=== PATIENT | female | born 1960 | race Caucasian/White ===

== ENCOUNTER → 2018-08-11 | Outpatient (CLI) | payer OTHER ==
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
== END | disposition home or self-care (01) ==
LOC: US 10:38
PROVIDERS: ATTEND Internal Medicine
DX: M25.461 Effusion, right knee (principal); Z85.3 Personal history of malignant neoplasm of breast
CPT/HCPCS: 93971

== ENCOUNTER → 2018-08-18 | Outpatient (CLI) | payer OTHER ==
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
== END | disposition home or self-care (01) ==
LOC: RAD 12:42
PROVIDERS: ATTEND Internal Medicine
DX: M25.561 Pain in right knee (principal); V89.2XXD Person injured in unspecified motor-vehicle accident, traffic, subsequent encounter
CPT/HCPCS: 73562

== ENCOUNTER 2020-04-13 09:58 | Inpatient (IN) | payer OTHER ==
[~2020-04-13] VITALS: Ht 160 cm; Wt 90.4 kg
--- NOTE | 2020-04-13 10:57 | RAD ---
CT HEAD WO CONTRAST History: CVA Comparison: None. Technique: Noncontrast CT imaging was performed of the head. Exposure: One or more of the following individualized dose reduction techniques were utilized for this examination: 1. Automated exposure control 2. Adjustment of the mA and/or kV according to patient size 3. Use of iterative reconstruction technique. Findings: No intracranial hemorrhage. No mass effect. No hydrocephalus. Mild foci of decreased attenuation within the hemispheric white matter, most often due to chronic microvascular ischemia. Imaged orbits are unremarkable. Imaged paranasal sinuses and mastoid air cells are clear. No acute calvarial fracture. Impression: 1. No acute intracranial abnormality. If persistent concern for acute ischemia, MRI can better evaluate. Electronically signed by: Joseph Alvarado DO (04/13/2020 10:54 AM) [id number]
[2020-04-13 11:33] LABS: BASO # 0.1 x10^3/uL (0.0-0.2); BASO % 1 % (0-3); EOS # 0.1 x10^3/uL (0.0-0.7); EOS % 1 % (0-3); HEMATOCRIT 41.1 % (36.0-47.0); HEMOGLOBIN 14.3 g/dL (12.0-15.5); LYMPH # 1.8 x10^3/uL (1.0-4.8); LYMPH % 21 % (24-48); MEAN CORPUSCULAR HEMOGLOBIN 31 pg (25-35); MEAN CORPUSCULAR HGB CONC 35 g/dL (31-37); MEAN CORPUSCULAR VOLUME 88 fL (79-100); MONO # 0.7 x10^3/uL (0.0-1.1); MONO % 9 % (0-9); NEUT # 5.6 x10^3/uL (1.8-7.7); NEUT % 68 % (31-73); PLATELET COUNT 231 x10^3/uL (140-400); RED BLOOD COUNT 4.69 x10^6/uL (3.50-5.40); WHITE BLOOD COUNT 8.2 x10^3/uL (4.0-11.0)
[2020-04-13 11:42] LABS: CALCIUM 9.5 mg/dL (8.5-10.1); CREATININE 0.9 mg/dL (0.6-1.0); GFR 63.9
[2020-04-13 11:48] LABS: ALBUMIN 3.8 g/dL (3.4-5.0); TOTAL BILIRUBIN 0.9 mg/dL (0.2-1.0); TOTAL PROTEIN 7.8 g/dL (6.4-8.2)
[2020-04-13 12:15] LABS: BILIRUBIN,URINE NEGATIVE (NEG); CLARITY,URINE CLEAR; COLOR,URINE YELLOW; NITRITE,URINE NEGATIVE (NEG); PH,URINE 7.5 (<5.0-8.0); PROTEIN,URINE NEGATIVE (NEG-TRACE); UROBILINOGEN,URINE 0.2 mg/dL (0.2 mg/dL)
[2020-04-13 12:22] LABS: BACTERIA,URINE FEW /HPF (0-FEW); RBC,URINE OCC /HPF (0-2); SQUAMOUS EPITHELIAL CELL,UR MOD /LPF
--- NOTE | 2020-04-13 13:08 | PHYS DOC ---
Past Medical History Past Medical History: Hypertension Past Surgical History: Appendectomy Smoking Status: Never Smoker Alcohol Use: None General Adult EDM: Chief Complaint: NEURO SYMPTOMS/DEFICITS HPI: HPI: Patient is a 59 year old female presents to the ED with a chief complaint of numbness and tingling in her left upper and left lower extremities. Patient states that the symptoms started around 4 this morning. Patient denies taking any blood thinners. Patient denies fever, chills, nausea, vomiting, chest pain, shortness of breath. Patient also denies dysarthria, dysphasia, slurred speech, visual changes. Review of Systems: Review of Systems: Constitutional: Denies fever or chills. [] Eyes: Denies change in visual acuity. [] HENT: Denies nasal congestion or sore throat. [] Respiratory: Denies cough or shortness of breath. [] Cardiovascular: Denies chest pain or edema. [] GI: Denies abdominal pain, nausea, vomiting : Denies dysuria. [] Musculoskeletal: Denies back pain or joint pain. [] Neurologic: Complains of numbness and tingling in the left upper and left lower extremities Heart Score: Risk Factors: Risk Factors: DM, Current or recent (<one month) smoker, HTN, HLP, family history of CAD, obesity. Risk Scores: Score 0 - 3: 2.5% MACE over next 6 weeks - Discharge Home Score 4 - 6: 20.3% MACE over next 6 weeks - Admit for Clinical Observation Score 7 - 10: 72.7% MACE over next 6 weeks - Early Invasive Strategies Current Medications: Current Medications Medications (Trade) Dose Ordered Sig/[facility] Start Time Stop Time Status Last Admin Dose Admin Clonidine HCl (Catapres) 0.1 mg 1X ONCE 04/13/20 13:30 04/13/20 13:31 Allergies: Allergies: Allergies Coded Allergies Type Severity Reaction Last Updated Verified Penicillins Allergy Intermediate 08/27/15 Yes Sulfa (Sulfonamide Antibiotics) Allergy Intermediate 08/27/15 Yes Physical Exam: PE: Constitutional: Well developed, well nourished, no acute distress, non-toxic appearance. [] HENT: Normocephalic, atraumatic Eyes: PERRLA, EOMI Neck: Normal range of motion, no tenderness Cardiovascular:Heart rate regular rhythm, no murmur [] Lungs & Thorax: Bilateral breath sounds clear to auscultation [] Abdomen: Bowel sounds normal, soft, no tenderness Extremities: No tenderness, ROM intact Neurologic: Alert and oriented X 3, normal motor function Current Patient Data: Labs: Laboratory Tests Test 04/13/20 11:25 04/13/20 12:07 White Blood Count 8.2 x10^3/uL (4.0-11.0) Red Blood Count 4.69 x10^6/uL (3.50-5.40) Hemoglobin 14.3 g/dL (12.0-15.5) Hematocrit 41.1 % (36.0-47.0) Mean Corpuscular Volume 88 fL (79-100) Mean Corpuscular Hemoglobin 31 pg (25-35) Mean Corpuscular Hemoglobin Concent 35 g/dL (31-37) Red Cell Distribution Width 13.0 % (11.5-14.5) Platelet Count 231 x10^3/uL (140-400) Neutrophils (%) (Auto) 68 % (31-73) Lymphocytes (%) (Auto) 21 % (24-48) L Monocytes (%) (Auto) 9 % (0-9) Eosinophils (%) (Auto) 1 % (0-3) Basophils (%) (Auto) 1 % (0-3) Neutrophils # (Auto) 5.6 x10^3/uL (1.8-7.7) Lymphocytes # (Auto) 1.8 x10^3/uL (1.0-4.8) Monocytes # (Auto) 0.7 x10^3/uL (0.0-1.1) Eosinophils # (Auto) 0.1 x10^3/uL (0.0-0.7) Basophils # (Auto) 0.1 x10^3/uL (0.0-0.2) Sodium Level 140 mmol/L (136-145) Potassium Level 4.0 mmol/L (3.5-5.1) Chloride Level 103 mmol/L (98-107) Carbon Dioxide Level 29 mmol/L (21-32) Anion Gap 8 (6-14) Blood Urea Nitrogen 11 mg/dL (7-20) Creatinine 0.9 mg/dL (0.6-1.0) Estimated GFR (Cockcroft-Gault) 63.9 BUN/Creatinine Ratio 12 (6-20) Glucose Level 139 mg/dL (70-99) H Calcium Level 9.5 mg/dL (8.5-10.1) Magnesium Level 2.0 mg/dL (1.8-2.4) Total Bilirubin 0.9 mg/dL (0.2-1.0) Aspartate Amino Transferase (AST) 28 U/L (15-37) Alanine Aminotransferase (ALT) 40 U/L (14-59) Alkaline Phosphatase 135 U/L (46-116) H Total Protein 7.8 g/dL (6.4-8.2) Albumin 3.8 g/dL (3.4-5.0) Albumin/Globulin Ratio 1.0 (1.0-1.7) Thyroid Stimulating Hormone (TSH) 1.393 uIU/mL (0.358-3.74) Urine Collection Type Void Urine Color Yellow Urine Clarity Clear Urine pH 7.5 (<5.0-8.0) Urine Specific [facility] <=1.005 (1.000-1.030) Urine Protein Negative mg/dL (NEG-TRACE) Urine Glucose (UA) Negative mg/dL (NEG) Urine Ketones (Stick) Negative mg/dL (NEG) Urine Blood Negative (NEG) Urine Nitrite Negative (NEG) Urine Bilirubin Negative (NEG) Urine Urobilinogen Dipstick 0.2 mg/dL (0.2 mg/dL) Urine Leukocyte Esterase Negative (NEG) Urine RBC Occ /HPF (0-2) Urine WBC 1-4 /HPF (0-4) Urine Squamous Epithelial Cells Mod /LPF Urine Bacteria Few /HPF (0-FEW) Laboratory Tests 04/13/20 11:25 Laboratory Tests 04/13/20 11:25 Vital Signs: Vital Signs Date Time Temp Pulse Resp B/P (MAP) Pulse Ox O2 Delivery O2 Flow Rate FiO2 04/13/20 10:33 98.8 88 18 217/93 (134) 99 Room Air 98.8 EKG: EKG: [] Radiology/Procedures: Radiology/Procedures: [] Impression: CT head does not show any acute disease. Course & Med Decision Making: Course & Med Decision Making Pertinent Labs and Imaging studies reviewed. (See chart for details) Order CT head, labs, IV. CT head does not show any acute disease. Labs are within normal limits. UA does not show UTI. Patient's blood pressure is elevated and so ordered Catapres. Patient still having symptoms which she describes as tingling and numbness. I discussed results and plan of care with patient. Patient will need to be admitted for further evaluation and treatment. SHe will need an MRI of Brain to further evaluate for CVA. I will page PCP for admission. I discussed case with neurology on-call who recommended patient be admitted as well. I have discussed case with Dr. Fernandez who is on-call for Dr. Veras. Wesleyon Disclaimer: Beata Disclaimer: This electronic medical record was generated, in whole or in part, using a voice recognition dictation system. Departure Departure Impression: Primary Impression: TIA (transient ischemic attack) Disposition: ADMITTED INPATIENT Admitting Physician: Patricia Veras Condition: GOOD Referrals: PATRICIA VERAS MD (PCP) LIZZETH ORR DO April 13, 2020 13:08
[2020-04-13] MEDS ORDERED: cloNIDine HCL 0.1 MG TABLET PO ONE (13:30)
[2020-04-13] MEDS ORDERED: ASPIRIN 325 MG TABLET PO ONE (13:30)
--- NOTE | 2020-04-13 14:35 | CONS ---
DATE OF CONSULTATION: 04/13/2020 REFERRING PHYSICIAN: Dr. Montano. REASON FOR CONSULTATION: Possible stroke. HISTORY OF PRESENT ILLNESS: The patient is a 59-year-old woman who began to have symptoms at 4:00 this morning. She noticed tingling of the left lip, arm and leg. When she touches it felt funny. She did not notice any weakness or coordination change. This was not associated with headache. She had no alteration of vision. It did not adversely affect her balance. She presented to the Emergency Room and was noted to have extremely high blood pressures. PAST MEDICAL HISTORY: 1. Hypertension. 2. Occasional edema of her feet and legs. 3. Generalized anxiety disorder. 4. Appendectomy. ALLERGIES: PENICILLIN AND SULFA. MEDICATIONS PRIOR TO ADMISSION: She is on a pill for blood pressure and a muscle relaxant she takes as needed as well as a water pill. These have not yet been documented in the medical records. FAMILY HISTORY: She is not aware of any diseases in her family. SOCIAL HISTORY: She is . She is a lifelong nonsmoker. She will drink alcohol, perhaps once every year or two. She does not use recreational drugs. REVIEW OF SYSTEMS: She has occasional headache. There has been no change of vision or hearing. She has had no trouble with chewing or swallowing. She is not short of breath, having chest or abdominal pain. Has some pain of her left ankle. She has not had fever or rash. Has not had gastrointestinal or genitourinary complaints. Does not complain of easy bruising or bleeding. She does have occasional swelling of her ankles for which she uses a water pill. She does have hypertension. She does have some anxiety. PHYSICAL EXAMINATION: VITAL SIGNS: The blood pressure was 228/100, pulse 81, respirations 16, temperature 98.8 degrees Fahrenheit. Oximetry was 97% on room air. Her weight was 90.4 kilograms, height 63 inches with a calculated body mass index of 35.3. GENERAL: She was alert, awake and cooperative. Speech was fluent and clear. She had a good fund of recent and remote knowledge. Attention and concentration was intact. She appeared well groomed and well nourished. She was fully oriented. NEUROLOGIC: Examination of the cranial nerves revealed visual lin were full to confrontation. Extraocular movements were intact. The eyes were conjugate. Pursuit movements were smooth and saccadic eye movements were without dysmetria. Pupils were 3 mm and reacted. Facial sensation was intact bilaterally. The muscles of mastication and facial expression were powerful symmetrically. Hearing was intact to finger rub. The palate arched symmetrically and the tongue was midline with full motion. Sternocleidomastoid and trapezius were powerful. Muscle bulk and tone was normal. There was no arm drift or abnormal movement. There was no leg drift. The power was full and symmetric in the upper and lower extremities. Reflexes were 2/4 and symmetric in the upper and lower extremities. The toes were downgoing bilaterally. Coordination testing with [id number], [id number], fine motor and rapid alternating movements was well performed. The sensory examination was intact to pain, light touch, proprioception, graphesthesia, cold thermal and vibration. There was no extinction to double simultaneous stimulation. She did have a subjective sensory change in the left arm more than the leg with light touch. Gait was not testable. NECK: Auscultation of the carotid arteries did not reveal a bruit. HEART: Rhythm is regular, without a murmur. EXTREMITIES: Peripheral pulses were symmetric in the hands and feet. There was no edema or cyanosis. LABORATORY RESULTS: CBC revealed a normal white blood cell count at 8.2 with normal hemoglobin at 14.3, hematocrit at 41.1, and platelet count of 231. Chemistries revealed normal electrolytes, BUN and creatinine. Glucose was elevated at 139, which was random. Calcium, and magnesium were normal. Liver enzymes were not elevated except alkaline phosphatase of 135. TSH was normal. Urinalysis revealed a specific gravity of less than 1.005. There was occasional red blood cell and 1-4 white blood cells with moderate squamous epithelial cells and a few bacteria. DIAGNOSTIC RESULTS: CT scan of the brain was performed without contrast on 04/13/2020. This did not reveal an acute intracranial process. IMPRESSION: The patient is a 59-year-old woman who developed a sense of tingling on the left side of her body including the left lips. Neurologically her exam is intact. The sensory findings are purely subjective and I find no objective findings. It is certainly possible this could represent a small stroke of the right thalamus. It could be related to hypertensive encephalopathy. It could be related to anxiety. RECOMMENDATIONS: She will need to be admitted for blood pressure management. We will also do workup for stroke with MRI brain without contrast, carotid Doppler and echocardiogram. She is on aspirin for stroke prevention. She will need a fasting lipid profile if this has not been done as an outpatient. I appreciate being involved in her care. KOURTNEY MA MD DR: OTTO/zohreh JOB#: [id number] / [id number]
[2020-04-13 15:15] VITALS: BP 173/70
--- NOTE | 2020-04-13 15:33 | RAD ---
BRAIN W/O CONTRAST History:Reason: stroke Technique: Multiplanar, multi sequential MR imaging was performed of the brain without contrast. Comparison: CT April 13, 2020 Findings: Small acute right thalamic lacunar infarct. Small acute left kirkland radiata infarct. No additional infarct. No intracranial hemorrhage. No mass effect. No hydrocephalus. Mild additional foci of FLAIR hyperintensities within the hemispheric white matter, most often due to chronic microvascular ischemia. Imaged orbits are unremarkable. Imaged paranasal sinuses and mastoid air cells are clear. Attempted to discuss the results with patient's nurse without success. Impression: 1. Acute right thalamic and left kirkland radiata infarcts. 2. Mild sequela chronic microvascular ischemia. Electronically signed by: Joseph Alvarado DO (04/13/2020 3:30 PM) [id number]
[2020-04-13 16:11] VITALS: BP 173/70
[2020-04-13] MEDS ORDERED: CETI10TA24 PO (19:15)
[2020-04-13] MEDS ORDERED: LOSA100T14 PO (19:15)
[2020-04-13] MEDS ORDERED: HYDR12.58 PO (19:16)
--- NOTE | 2020-04-13 19:20 | RAD ---
Duplex ultrasound carotid artery. HISTORY: CVA, left-sided weakness Duplex ultrasound was used to evaluate the carotid arteries. Real-time imaging, color flow imaging and Doppler were utilized for evaluation. There is minimal plaque at the right carotid bifurcation without significant stenosis on real-time or color imaging. Peak velocity in the right internal carotid artery was 64 cm/s with end-diastolic velocity of 20 cm/s and a systolic velocity index of 1.1. There is antegrade flow in the right vertebral. There is no significant plaque at the left carotid bifurcation on real-time imaging. No stenosis was noted on color imaging. Peak velocity in the left internal carotid artery was 75 cm/s with an end-diastolic velocity of 23 cm/s and a systolic velocity index of 1.2. There is antegrade flow in the left vertebral. IMPRESSION: 1. No significant stenosis noted at the carotid bifurcations. 2. Antegrade flow in each vertebral. PQRS Compliance Statement - Stenosis calculations for CT, MR and conventional angiography are based upon measurement of the distal ICA diameter in accordance with the NASCET methodology. Stenosis calculations for carotid ultrasound studies are derived from validated velocity criteria which are known to correlate with the NASCET methodology. Electronically signed by: Hank Salgado MD (04/13/2020 7:17 PM) [facility]
[2020-04-13 19:48] VITALS: BP 173/69
[2020-04-13] MEDS: CETIRIZINE HCL 10 MG TABLET. PO SCH (20:15)
[2020-04-13] MEDS: LOSARTAN POTASSIUM 50 MG TABLET. PO SCH (20:15)
[2020-04-13 23:36] VITALS: BP 161/67
[2020-04-14 03:00] VITALS: BP 155/77
[2020-04-14 07:05] VITALS: BP 203/90
[2020-04-14] MEDS: hydroCHLOROthiazide 25 MG TABLET PO SCH (09:15)
[2020-04-14] MEDS ORDERED: amLODIPine BESYLATE 5 MG TABLET PO ONE (10:45)
[2020-04-14] MEDS ORDERED: ASPIRIN 325 MG TABLET PO ONE (10:45)
[2020-04-14] MEDS ORDERED: NON FORMULARY ITEM (Hydrochlorothiazide (Hydrochlorothiazide Tablet) 25 MG) PO SCH (10:45)
[2020-04-14 11:06] VITALS: BP 185/79
--- NOTE | 2020-04-14 12:31 | PDOC ---
Provider Note Provider Note Pt seen.H&P dictated.#[id number]. Rt Thalmic infarct, Acce htn will bring BP down slowly. NEFTALI MCCLOUD MD April 14, 2020 12:31
--- NOTE | 2020-04-14 12:51 | HP ---
ADMIT DATE: 04/14/2020 ATTENDING PHYSICIAN: Kali Montano MD REASON FOR ADMISSION TO THE HOSPITAL: Numbness and tingling in the left upper and left lower extremity and started approximately 4:00 yesterday morning and she came to the hospital around noon. CT was negative. Had seen Neurology. Carotid was negative. MRI shows some lacunar infarct. The patient was admitted to the hospital with a diagnosis of TIA versus mini strokes. PAST MEDICAL HISTORY: The patient denies any slurring of speech. No previous strokes. No previous cardiac problems. No chest pain. No shortness of breath. PAST MEDICAL HISTORY: Hypertension. PAST SURGICAL HISTORY: Appendectomy. PERSONAL HISTORY: Denies smoking, alcohol, or drug abuse. FAMILY HISTORY: Positive for hypertension. REVIEW OF SYSTEMS: Denies any chest pain or shortness of breath. Denies any speech problem. PHYSICAL EXAMINATION: GENERAL: Pleasant female, has some tingling and numbness in the left arm and left leg. No weakness. VITAL SIGNS: At the time of admission shows a temperature 98, pulse 81, respirations 16, blood pressure 228/100, 98% on room air. HEENT: Head is atraumatic. Pupils equal. Oral cavity: No congestion. NECK: Supple. Thyroid not enlarged. JVD not elevated. No carotid bruit. CHEST: Symmetrical. CARDIOVASCULAR: S1, S2. LUNGS: Clear. ABDOMEN: Soft, no mass palpable. EXTREMITIES: No calf tenderness. No edema. NEUROLOGIC: Cranial nerves intact. Power 5/5, moving all extremities. No focal deficits noted. The patient has some tingling and paresthesias in the left upper extremity. LABORATORY DATA: Shows a white count of 8, hemoglobin 14, platelets 231. Electrolytes show sodium 140, potassium 4.0, chloride 103, bicarb 29, anion gap 8, BUN 11, creatinine 0.9, glucose 139. TSH was normal. LFTs were normal. Urine was negative. CT head negative for stroke. Carotid Doppler was negative. MRI of the brain shows acute right thalamic and left kirkland radiata infarct. FINAL IMPRESSION: 1. Left-sided paraesthesia secondary to acute right thalamic infarct. She also had a left kirkland radiata infarct. 2. Accelerated hypertension. PLAN: At this time, was admitted to the hospital, was started on aspirin 325 daily. Neurology was consulted. Stroke workup, including carotid Doppler, echocardiogram and MRI results noted. PT/OT and see how she improves in the next 24-48 hours. NEFTALI MCCLOUD MD DR: KELLY/zohrhe JOB#: [id number] / [id number] KALI Deal MD
[2020-04-14 15:00] VITALS: BP 164/67
--- NOTE | 2020-04-14 16:35 | EKG ---
[facility] [address] [place] [address] Test Date: 2020-04-14 Test Time: 16:28:33 Pat Name: SILVIA MACDONALD Department: Room: 8 Gender: F Client Services Coordinator: : 1960 Requested By: NEFTALI MCCLOUD Order Number: [id number] Reading MD: Henrique Up MD Measurements Intervals [place] Rate: 71 P: 39 [place]: 200 QRS: -13 QRSD: 94 T: 112 QT: 406 QTc: 446 Interpretive Statements SINUS RHYTHM LEFTWARD AXIS LVH WITH REPOLARIZATION ABNORMALITY ABNORMAL ECG Electronically Signed On 04-15-2020 12:24:25 CDT by Henrique Up MD
[2020-04-14] MEDS: CETIRIZINE HCL 10 MG TABLET. PO SCH (19:22)
[2020-04-14] MEDS: LOSARTAN POTASSIUM 50 MG TABLET. PO SCH (19:23)
[2020-04-14 19:49] VITALS: BP_SYST 164; BP_SYST 196; BP_DIAS 67; BP_DIAS 84
[2020-04-14] MEDS ORDERED: CETIRIZINE HCL 10 MG TABLET. PO SCH (21:00)
[2020-04-14] MEDS ORDERED: NON FORMULARY ITEM (Losartan Potassium 100 MG) PO SCH (21:00)
[2020-04-14 23:37] VITALS: BP 192/77
[2020-04-14] MEDS: hydrALAZINE 20 MG/ML VIAL. IVP PRN (23:39)
[2020-04-15 00:30] VITALS: BP 155/77
[2020-04-15] MEDS: hydrALAZINE 20 MG/ML VIAL. IVP PRN (03:07)
[2020-04-15 03:30] VITALS: BP 188/79
[2020-04-15 05:12] LABS: CHOLESTEROL/HDL RATIO 2.8
[2020-04-15 07:00] VITALS: BP 141/57
[2020-04-15] MEDS ORDERED: ASPIRIN 325 MG TABLET PO SCH (08:00)
[2020-04-15] MEDS: hydroCHLOROthiazide 25 MG TABLET PO SCH (08:25)
[2020-04-15] MEDS ORDERED: amLODIPine BESYLATE 5 MG TABLET PO SCH (09:00)
--- NOTE | 2020-04-15 09:29 | PDOC3 ---
IM DISCHARGE SUMMARY Date of Admission Date of Admission Date of Admission: April 13, 2020 at 13:20 Date of Discharge Date of Discharge April 15, 2020 Primary Diagnosis Primary Diagnosis 1. Left-sided paraesthesia secondary to acute right thalamic infarct. She also had a left kirkland radiata infarct. 2. Accelerated hypertension. 3. Mixed hyperlipidemia Consults Consults Labs Labs Laboratory Tests Test 04/15/20 04:15 Triglycerides Level 101 mg/dL (0-150) Cholesterol Level 212 mg/dL (0-200) H LDL Cholesterol, Calculated 115 mg/dL (0-100) H VLDL Cholesterol, Calculated 20 mg/dL (0-40) Non-HDL Cholesterol Calculated 135 mg/dL (0-129) H HDL Cholesterol 77 mg/dL (40-60) H Cholesterol/HDL Ratio 2.8 Brief hospital course Brief hospital course This 59-year-old female presented to emergency room with numbness. Numbness and tingling in the left upper and left lower extremity and started approximately 4:00 yesterday morning and she came to the hospital around noon. CT was negative. Had seen Neurology. Carotid was negative. MRI shows some lacunar infarct. The patient was admitted to the hospital with a diagnosis of TIA versus mini strokes. For more details regarding the past history, family history, social history, surgical history and other details, please refer to History and Physical. At this time, was admitted to the hospital, was started on aspirin 325 mg daily. Neurology was consulted. Stroke workup, including carotid Doppler, echocardiogram and MRI results noted. Patient was started on physical therapy and Occupational Therapy. Echocardiogram is pending Mixed hyperlipidemia-LDL cholesterol is 115. Start Lipitor 20 mg daily at bedtime. She had tachycardia and dizziness last night. Blood pressure was initially high but then it dropped. She still has some numbness in the left side of her body. I will change her amlodipine to metoprolol to control tachycardia better. We will recheck how she is doing later this afternoon and if her blood pressure and symptoms are improving then we will be able to discharge her otherwise we will have to monitor till tomorrow and discharge tomorrow. When discharged will see in the office in 5 days. Medications Current Medications Medications (Trade) Dose Ordered Sig/Larry Route PRN Reason Start Time Stop Time Status Last Admin Dose Admin Amlodipine Besylate (Norvasc) 5 mg DAILY PO 04/15/20 09:00 04/15/20 08:26 Amlodipine Besylate (Norvasc) 5 mg 1X ONCE PO 04/14/20 10:45 04/14/20 10:46 DC 04/14/20 11:00 Aspirin (Sera Aspirin) 325 mg [id number] PO 04/15/20 08:00 04/15/20 08:25 Aspirin (Sera Aspirin) 325 mg 1X ONCE PO 04/14/20 10:45 04/14/20 10:46 DC 04/14/20 10:57 Hydralazine HCl (Apresoline Inj) 10 mg PRN Q4HRS PRN IVP ELEVATED BP, SEE COMMENTS 04/14/20 23:30 04/15/20 03:07 Medications reviewed and reconciled for discharge. Allergy Allergies Coded Allergies Type Severity Reaction Last Updated Verified Penicillins Allergy Intermediate 08/27/15 Yes Sulfa (Sulfonamide Antibiotics) Allergy Intermediate 08/27/15 Yes Follow up in 5 days. DISPOSITION: Home Comments Discharge Management - 35 minutes. For other details please refer to discharge instructions KALI VERAS MD Apr 15, 2020 09:29
[2020-04-15] MEDS ORDERED: AMLO5TAB10 PO (09:33)
[2020-04-15] MEDS ORDERED: ASPI325T8 PO (09:33)
[2020-04-15] MEDS ORDERED: ATOR20TA58 PO (09:33)
[2020-04-15] MEDS ORDERED: HYDR-2145 PO (09:33)
--- NOTE | 2020-04-15 09:34 | DISCH ---
DISCHARGE INSTRUCTIONS Condition on Discharge Condition on Discharge: Stable Activity After Discharge Activity Instructions for Disc: Activity as tolerated Diet after Discharge Diet after Discharge: Cardiac Checks after Discharge Checks after discharge: Check blood press - daily Contacting the after DC Call your doctor for: Concerns you may have Follow-Up Follow up with: Dr. Kali Veras in 5 days KALI VERAS MD Apr 15, 2020 09:34
[2020-04-15] MEDS ORDERED: METO25TA4 PO (10:04)
--- NOTE | 2020-04-15 11:06 | CARD ---
MR#: [id number] Date of Study: 04/15/2020 Ordering Physician: NEFTALI MCCLOUD, Referring Physician: NEFTALI MCCLOUD, Tech: Ammy Lundberg RDCS APPROVED REPORT EXAM: Two-dimensional and M-mode echocardiogram with Doppler and color Doppler. Other Information Quality : Good INDICATION CVA/TIA Echo Enhancing Agent Agent/Amount Used: Agitated Saline 8mL 2D DIMENSIONS RVDd2.4 (2.9-3.5cm)Left Atrium(2D)3.9 (1.6-4.0cm) IVSd1.6 (0.7-1.1cm)Aortic Root(2D)2.7 (2.0-3.7cm) LVDd3.4 (3.9-5.9cm)LVOT Diameter1.9 (1.8-2.4cm) PWd1.8 (0.7-1.1cm)LVDs1.7 (2.5-4.0cm) FS (%) 32.0 %LVEF(%)65.0 (>50%) Aortic Valve AoV Peak Rosendo.156.0cm/sAoV VTI27.0cm AO Peak GR.10.0mmHgLVOT Peak Rosendo.100.0cm/s LVOT VTI 16.00cmAO Mean GR.6mmHg [place] (VTI)1.70cm2 Tricuspid Valve TR P. [id number]/sRAP [id number] TR Peak Gr.[id number] LEFT VENTRICLE The left ventricle is small and hyperdynamic. There is moderate to severe concentric left ventricular hypertrophy. The left ventricular systolic function is normal and the ejection fraction is within no rmal range. The Ejection Fraction is 60-65%. There is normal LV segmental wall motion. Transmitral Do ppler flow pattern is Grade I-abnormal relaxation pattern. RIGHT VENTRICLE The right ventricle is normal size. The right ventricular systolic function is normal. ATRIA The left atrium size is normal. The right atrium size is normal. The interatrial septum is intact wit h no evidence for an atrial septal defect or patent foramen ovale as noted on 2-D or Doppler imaging. Injection of agitated saline contrast documented no interatrial shunt. AORTIC VALVE The aortic valve is not well visualized but appears to be functioning normally by Doppler interrogati on. Doppler and Color Flow revealed no significant aortic regurgitation. There is no significant aort ic valvular stenosis. MITRAL VALVE The mitral valve is calcified but opens well. There is no evidence of mitral valve prolapse. There is no mitral valve stenosis. Doppler and Color Flow revealed no mitral valve regurgitation noted. TRICUSPID VALVE The tricuspid valve is normal in structure and function. Doppler and Color Flow revealed trace tricus pid regurgitation. The PA pressure was estimated at 30 mmHg. There is no tricuspid valve stenosis. PULMONIC VALVE The pulmonic valve is not well visualized. Doppler and Color Flow revealed no pulmonic valvular regur gitation. There is no pulmonic valvular stenosis. GREAT VESSELS The aortic root is normal in size. The ascending aorta is normal in size. The IVC is normal in size a nd collapses >50% with inspiration. PERICARDIAL EFFUSION There is no evidence of significant pericardial effusion. Critical Notification Critical Value: No <Conclusion> The left ventricular systolic function is normal and the ejection fraction is within normal range. Th e Ejection Fraction is 60-65%. There is normal LV segmental wall motion. There is moderate to severe concentric left ventricular hypertrophy. The interatrial septum is intact with no evidence for an atrial septal defect or patent foramen ovale as noted on 2-D or Doppler imaging. Injection of agitated saline contrast documented no interatrial shunt. Signed by : Henrique Up, Electronically Approved : 04/15/2020 11:05:57
[2020-04-15] MEDS ORDERED: METOPROLOL TART IMMED RELEASE 25 MG TABLET. PO SCH (11:30)
[2020-04-15 11:35] VITALS: BP 155/64
--- NOTE | 2020-04-15 14:12 | NUR ---
SS following for discharge planning. SS reviewed pt chart and discussed with pt RN. Pt is from home with family and is currently on room air. PT recommended home independent. Per pt's RN, pt will discharge to home today.
[2020-04-15 15:00] VITALS: BP 157/65
--- NOTE | 2020-04-15 16:52 | NUR ---
Discharge Note: [facility] Discharge instructions and discharge home medications reviewed with Patient and a copy given. All questions have been answered and understanding verbalized. The following instructions and handouts were given: F/U WITH DR. VERAS WITHIN FIVE DAYS. Discontinued lines and drains: Peripheral IV intact. Patient discharged to Home or Self Care with Family Member via Wheelchair
[2020-04-15] MEDS ORDERED: ATORVASTATIN CALCIUM 20 MG TABLET PO SCH (21:00)
== END 2020-04-15 16:52 | disposition home or self-care (01) | DRG 65 ==
LOC: ER 09:58 → 6 SOUTH 13:20
PROVIDERS: ADMIT Internal Medicine; ATTEND Internal Medicine
DX: I63.81 Other cerebral infarction due to occlusion or stenosis of small artery (principal); I16.1 Hypertensive emergency; E78.5 Hyperlipidemia, unspecified; F41.1 Generalized anxiety disorder; I10 Essential (primary) hypertension; Z82.49 Family history of ischemic heart disease and other diseases of the circulatory system; Z90.49 Acquired absence of other specified parts of digestive tract; Z88.0 Allergy status to penicillin; Z88.2 Allergy status to sulfonamides; Z79.899 Other long term (current) drug therapy
CPT/HCPCS: 36415; 70450; 70551; 80053; 80061; 81001; 83735; 84443; 85025; 93005; 93306; 93880; 96374; 99285; J0360; J2060; 97116-GP; G0378